=== PATIENT | female | born 1985 | race Caucasian/White ===

== ENCOUNTER 2018-01-09 08:17 | Emergency (ER) | payer OTHER ==
[2018-01-09] MEDS: NS 1,000 ML IV (08:57)
[2018-01-09] MEDS: FAMOTIDINE INJ 20MG/2ML VIAL (S0028) IV (08:58)
[2018-01-09] MEDS: methylPREDNISolone INJ 125 MG/2 ML VIAL (J2930) IV (08:58)
== END 2018-01-09 11:16 | disposition home or self-care (01) ==
LOC: M ED 08:17
DX: T78.40XA Allergy, unspecified, initial encounter (principal); Y92.9 Unspecified place or not applicable; Y93.9 Activity, unspecified; Z79.899 Other long term (current) drug therapy; Z88.1 Allergy status to other antibiotic agents; Z88.2 Allergy status to sulfonamides; Z88.6 Allergy status to analgesic agent; Z88.8 Allergy status to other drugs, medicaments and biological substances
CPT/HCPCS: J2930

== ENCOUNTER → 2020-07-23 | Outpatient (CLI) | payer OTHER ==
[~2020-07-23] MED LIST: BENA25CA4 PO; PRED20TA PO; RANI-397 PO; ZYRTTAB8 PO
[2020-07-23 17:39] LABS: ALBUMIN 4.2 GM/DL (3.2-5.2); ALT/SGPT 33 U/L (12-78); BILIRUBIN,DIRECT 0.2 MG/DL (0.0-0.2); BILIRUBIN,TOTAL 0.8 MG/DL (0.2-1.0); FREE T4 1.13 NG/DL (0.76-1.46); IRON (FE) 21 UG/DL (50-170); PERCENT SATURATION 4.9 % (13.2-45.0); TOTAL IRON BINDING CAPACITY 429 UG/DL (250-450); TOTAL PROTEIN 6.9 GM/DL (6.4-8.2)
[2020-07-23 17:52] LABS: HEPATITIS B SURFACE ANTIGEN NEGATIVE (NEGATIVE)
[2020-07-23 18:19] LABS: HEPATITIS B CORE ANTIBODY IGM NEGATIVE (NEGATIVE)
[2020-07-23 18:22] LABS: HEPATITIS A ANTIBODY IGM NEGATIVE (NEGATIVE)
[2020-07-23 19:41] LABS: HEPATITIS C VIRUS ABY INDEX < 0.0 INDEX (<0.8)
[2020-07-28 16:12] LABS: ANCA-ATYPICAL <1:20 titer (Neg:<1:20); ANTI-MITOCHONDRIAL ANTIBODY <20.0 Units (0.0-20.0); ANTINUCLEAR ANTIBODIES DIRECT Negative (Negative); CYTOPLASMIC NEUTROP AB ANCA-C <1:20 titer (Neg:<1:20); LIVER-KIDNEY MICROSOMAL ABY <20.1 Units (0.0-20.0); PERINUCLEAR AB ANCA-P <1:20 titer (Neg:<1:20); TISSUE TRANSGLUTAMINASE IgA <2 U/mL (0-3)
== END ==
LOC: M LAB 16:20
PROVIDERS: ATTEND Internal Medicine Gastroenterology
DX: R94.5 Abnormal results of liver function studies (principal)

== ENCOUNTER → 2020-08-06 | Outpatient (CLI) | payer OTHER ==
--- NOTE | 2020-08-06 08:13 | REP ---
INDICATION: ABN LIVER FUNCTION STUDIES COMPARISON: None. TECHNIQUE: Real time diop scale ultrasound examination using curved array transducer. FINDINGS: Liver is hyperechoic suggesting fatty infiltration without focal hepatic lesion and without evidence for hepatomegaly. Pancreas is incompletely evaluated due to interposed bowel gas. The gallbladder is not visualized and may represent prior cholecystectomy. No biliary ductal dilatation is appreciated and the common bile duct measures 6.2 mm diameter. Right kidney is normal in reniform shape without hydronephrosis and measures 11.6 x 5.5 x 5.4 cm. No ascites in the visualized right upper quadrant. IMPRESSION: Hepatosteatosis. Presumed prior cholecystectomy. <Electronically signed by Sandeep Wray > 08/06/20 [id number]
== END ==
LOC: M RAD 07:08
PROVIDERS: ATTEND Internal Medicine Gastroenterology
DX: R94.5 Abnormal results of liver function studies (principal)

== ENCOUNTER 2020-09-26 06:42 | Day surgery (SDC) | payer OTHER ==
[~2020-09-26] VITALS: Ht 170.2 cm; Wt 90.7 kg
[~2020-09-26 06:42] MED LIST changes: +ATOR80TA59 PO; +BYDU2INJ7 SC; +GABA-282 PO; +GLIP-163 PO; +GLUC500C55 PO; +HYDR-3716 PO; +MELA3TAB30 PO; +NS 1,000 ML IV ONE; +PREN27TA3 PO; +TELM1TAB37 PO; +XOLA150S SC
[2020-09-26] MEDS ORDERED: fentaNYL 100 MCG/2 ML INJECTION (J3010) As Ordered ONE (07:27)
[2020-09-26] MEDS ORDERED: LIDOCAINE 2% 100MG/5ML SDV (FOR ANES.) As Ordered ONE (07:27)
[2020-09-26] MEDS ORDERED: propofoL 500 MG/50 ML VIAL As Ordered ONE (07:28)
--- NOTE | 2020-09-26 07:49 | ROOR ---
Patient Name: Alicia Whitney Procedure Date: 09/26/2020 7:29 AM Date of : 1985 Age: 35 Room: [facility] Gender: Female Note Status: Finalized Procedure: Upper GI endoscopy Indications: Epigastric abdominal pain, Nausea Providers: Topher Moss MD Referring MD: Kaleb Lomas, RAMIREZ GUZMÁN MD Requesting Provider: Medicines: Monitored Anesthesia Care Complications: No immediate complications. Procedure: Pre-Anesthesia Assessment: - The heart rate, respiratory rate, oxygen saturations, blood pressure, adequacy of pulmonary ventilation, and response to care were monitored throughout the procedure. The Endoscope was introduced through the mouth, and advanced to the second part of duodenum. The upper GI endoscopy was accomplished without difficulty. The patient tolerated the procedure well. Findings: The esophagus was normal. The stomach was normal. The examined duodenum was normal. Impression: - Normal esophagus. - Normal stomach. - Normal examined duodenum. - No specimens collected. Recommendation: - Eat smaller, more frequent meals throughout the day. - Low fat diet. - Liquid/soft foods are tolerated better than solid foods. - Low fiber/well cooked vegetables are tolerated better than high fiber/fibrous foods/raw vegetables. - Avoid medications that inhibit gastric/intestinal motility such as narcotic medications. Procedure Code(s): --- Professional --- 09845, Esophagogastroduodenoscopy, flexible, transoral; diagnostic, including collection of specimen(s) by brushing or washing, when performed (separate procedure) Diagnosis Code(s): --- Professional --- R10.13, Epigastric pain R11.0, Nausea CPT copyright 2019 [employer]. All rights reserved. The codes documented in this report are preliminary and upon cloud solutions architect review may be revised to meet current compliance requirements. Topher Moss MD Topher Moss MD 09/26/2020 7:48:09 AM Electronically signed by Topher Moss MD Number of Addenda: 0 Note Initiated On: 09/26/2020 7:29 AM Estimated Blood Loss: Estimated blood loss: none.
--- NOTE | 2020-09-26 08:06 | ROOR ---
Patient Name: Alicia Whitney Procedure Date: 09/26/2020 7:30 AM Date of : 1985 Age: 35 Room: [facility] Gender: Female Note Status: Finalized Procedure: Colonoscopy Indications: Generalized abdominal pain, Change in bowel habits Providers: Topher Moss MD Referring MD: RAMIREZ GUZMÁN MD Requesting Provider: Medicines: Monitored Anesthesia Care Complications: No immediate complications. Procedure: Pre-Anesthesia Assessment: - The heart rate, respiratory rate, oxygen saturations, blood pressure, adequacy of pulmonary ventilation, and response to care were monitored throughout the procedure. The Colonoscope was introduced through the anus and advanced to 10 cm into the ileum. The colonoscopy was performed without difficulty. The patient tolerated the procedure well. The quality of the bowel preparation was good. Findings: The perianal and digital rectal examinations were normal. Small Internal Hemorrhoids. The entire examined colon appeared normal on direct and retroflexion views. The terminal ileum appeared normal. Biopsies for histology were taken with a cold forceps for evaluation of microscopic colitis. Impression: - Small Internal Hemorrhoids. - The entire examined colon is normal on direct and retroflexion views. - The examined portion of the ileum was normal. - Biopsies were taken with a cold forceps for evaluation of microscopic colitis. Recommendation: - Await pathology results. - Telephone endoscopist for pathology results. - Return to referring physician as previously scheduled (for medications review as possible cause for symptoms). Procedure Code(s): --- Professional --- 10894, Colonoscopy, flexible; with biopsy, single or multiple Diagnosis Code(s): --- Professional --- R19.4, Change in bowel habit R10.84, Generalized abdominal pain CPT copyright 2019 [employer]. All rights reserved. The codes documented in this report are preliminary and upon traveling storekeeper review may be revised to meet current compliance requirements. Topher Moss MD Topher Moss MD 09/26/2020 8:06:07 AM Electronically signed by Topher Moss MD Number of Addenda: 0 Note Initiated On: 09/26/2020 7:30 AM Estimated Blood Loss: Estimated blood loss: none.
[2020-09-26 08:20] VITALS: BP 116/72
== END 2020-09-26 08:31 | disposition home or self-care (01) ==
LOC: M OPP 06:42
PROVIDERS: ATTEND Internal Medicine Gastroenterology
DX: R10.84 Generalized abdominal pain (principal); K64.8 Other hemorrhoids; R19.4 Change in bowel habit; R10.13 Epigastric pain; R11.0 Nausea; Z79.84 Long term (current) use of oral hypoglycemic drugs; Z79.891 Long term (current) use of opiate analgesic; Z79.899 Other long term (current) drug therapy; Z88.2 Allergy status to sulfonamides; Z88.5 Allergy status to narcotic agent; Z88.8 Allergy status to other drugs, medicaments and biological substances
CPT/HCPCS: 43235; 45380; 88305; J3010

== ENCOUNTER 2022-01-26 06:08 | Day surgery (SDC) | payer OTHER ==
[~2022-01-26] VITALS: Ht 170.2 cm; Wt 90.9 kg
[~2022-01-26 06:08] MED LIST changes: +CETI10CH PO; +GABA-1171; +GABA-283 PO; +GABA800T4 PO; -GLUC500C55 PO; +GLUC500C65 PO; +METF-838 PO; +METH2.5T48 PO; -NS 1,000 ML IV ONE; +PHEN1TAB73; +PSEU-52; +VITA100093 PO
[2022-01-26] MEDS ORDERED: LR 1,000 ML IV SCH ×2 (06:35→08:35)
[2022-01-26] MEDS ORDERED: FOLI1TAB11 PO (06:46)
[2022-01-26] MEDS ORDERED: DESFLURANE 240 ML INHALANT As Ordered ONE (07:00)
[2022-01-26] MEDS ORDERED: propofoL 200 MG/20 ML VIAL As Ordered ONE ×2 (07:04→08:15)
[2022-01-26] MEDS ORDERED: LIDOCAINE 2% 100MG/5ML SDV (FOR ANES.) As Ordered ONE (07:04)
[2022-01-26] MEDS ORDERED: MIDAZOLAM INJ 2MG/2ML VIAL (J2250 PER 1MG) As Ordered ONE (07:05)
[2022-01-26] MEDS ORDERED: ONDANSETRON 4MG 2ML VIAL As Ordered ONE (07:05)
[2022-01-26] MEDS ORDERED: dexameTHASONE 4 MG/ML 1ML VIAL (J1100 PER 1MG) As Ordered ONE (07:05)
[2022-01-26] MEDS ORDERED: fentaNYL 100 MCG/2 ML INJECTION As Ordered ONE (07:05)
[2022-01-26 07:07] LABS: HEMATOCRIT 43.6 % (36.0-47.0); HEMOGLOBIN 14.3 g/dl (12.0-15.5); MEAN CORPUSCULAR HEMOGLOBIN 28.2 pg (27.0-33.0); MEAN CORPUSCULAR HGB CONC 32.8 g/dl (32.0-36.5); PLATELET COUNT, AUTOMATED 254 10^3/uL (150-450); RED BLOOD COUNT 5.07 10^6/uL (4.00-5.40); WHITE BLOOD COUNT 9.2 10^3/uL (4.0-10.0)
[2022-01-26] MEDS ORDERED: SCOPOLAMINE 1MG TRANSDERMAL PATCH TOP ONE (07:10)
[2022-01-26] MEDS ORDERED: SILVER NITRATE APPLICATOR (1 = QTY 10) As Ordered ONE (07:12)
[2022-01-26] MEDS ORDERED: LIDOCAINE 1% SDV 30ML VIAL As Ordered ONE (07:12)
[2022-01-26 07:55] LABS: POTASSIUM SERUM 4.1 MEQ/L (3.5-5.1)
[2022-01-26] MEDS ORDERED: METOCLOPRAMIDE INJ 10MG/2ML VIAL (J2765 PER 1) As Ordered ONE (08:02)
[2022-01-26] MEDS ORDERED: LEVONORGESTREL 52MG (MIRENA) IUD As Ordered ONE (08:07)
[2022-01-26] MEDS ORDERED: ACETAMINOPHEN 1000MG 100ML IV BTL (OFIRMEV) (J0131 PER 10MG) As Ordered ONE (08:09)
[2022-01-26] MEDS ORDERED: fentaNYL 100 MCG/2 ML INJECTION IV PRN (08:35)
[2022-01-26] MEDS ORDERED: ONDANSETRON 4MG 2ML VIAL IV PRN (08:35)
[2022-01-26] MEDS ORDERED: METOCLOPRAMIDE INJ 10MG/2ML VIAL (J2765 PER 1) IV PRN (08:35)
[2022-01-26] MEDS ORDERED: oxyCODONE 5MG TAB PO PRN (08:35)
[2022-01-26] MEDS ORDERED: oxyCODONE 5MG TAB PO ONE (09:00)
[2022-01-26 10:10] VITALS: BP 153/93
== END 2022-01-26 10:10 | disposition home or self-care (01) ==
LOC: M SDC 06:08
PROVIDERS: ATTEND Obstetrics & Gynecology
DX: N84.0 Polyp of corpus uteri (principal); N93.9 Abnormal uterine and vaginal bleeding, unspecified; Z30.433 Encounter for removal and reinsertion of intrauterine contraceptive device; I10 Essential (primary) hypertension; E11.9 Type 2 diabetes mellitus without complications; E78.5 Hyperlipidemia, unspecified; M32.9 Systemic lupus erythematosus, unspecified; Z87.891 Personal history of nicotine dependence; Z79.899 Other long term (current) drug therapy; Z79.84 Long term (current) use of oral hypoglycemic drugs; Z88.2 Allergy status to sulfonamides; Z88.8 Allergy status to other drugs, medicaments and biological substances; Z88.1 Allergy status to other antibiotic agents
CPT/HCPCS: 36415; 58300; 58301; 58558; 80051; 81025; 85027; 86850; 86900; 86901; 88305; J0131; J1100; J2250; J2405; J2765; J3010; J7298